=== PATIENT | female | born 1995 | race Caucasian/White ===

== ENCOUNTER 2025-03-25 15:22 | Emergency (ER) | payer BC, SELFPAY ==
[2025-03-25 15:23] VITALS: BMI 26.7
[2025-03-25 16:21] VITALS: BP 138/95; PULSE 100; RESP 18; TEMP 36.9; O2SAT 99
--- NOTE | 2025-03-25 16:30 | XR_ITS ---
Examination: Complete OB ultrasound, less than 14 weeks, transabdominal Date and time of exam: March 25, 2025, 1646 hours INDICATIONS: Heavy vaginal bleeding beginning 8 days ago Technique: Obstetrical ultrasound images less than 14 weeks performed via transabdominal imaging Findings: Uterus 8.0 cm, no intrauterine gestation no uterine mass Endometrial stripe 21 mm Right ovary 2.7 cm arterial flow Left ovary 2.7 cm arterial flow 15 x 18 mm follicular cyst IMPRESSION: No intrauterine gestation, thickened endometrial stripe, clinical correlation advised
--- NOTE | 2025-03-25 16:31 | PD.EDVAGBL ---
ED OB Contraction Preg RMI/HPI General Chief complaint: Vaginal Bleeding Stated complaint: VAG BLEED Time Seen by Provider: 03/25/25 15:36 Arrival date/time: 03/25/25 15:22 29-year-old female G2, unknown gestation is sent in by [facility] for vaginal bleeding early . Patient states that she has been bleeding for the past 24 hours and has changed several pads within the last hour she also notes some mild pelvic pain but no fever no dysuria urinary urgency or frequency no back pain no nausea or vomiting. Patient states that she was unaware of her and therefore has not taken any vitamins Limitations: no limitations Related Data Previous Rx's ?Medication ?Instructions ?Recorded famotidine 20 mg tablet 20 mg PO BID #10 tabs 06/15/17 Allergies Allergy/AdvReac Type Severity Reaction Status Date / Time No Known Allergies Allergy Verified 07/24/22 22:45 Review of Systems Constitutional Constitutional: Denies chills, Denies fever(s) and Denies headache(s) ENT Ears, Nose, Mouth, and Throat: Denies headache(s) and Denies vertigo Gastrointestinal Gastrointestinal: Denies nausea and Denies vomiting Genitourinary Genitourinary: Reports abnormal vaginal bleeding, Denies dysuria, Denies urinary hesitancy and Denies urinary urgency Musculoskeletal Musculoskeletal: Denies back pain and Denies myalgias Integumentary/Breasts Skin/Breast: Denies lesions, Denies rash and Denies sores Neurologic Neurologic: Denies headache(s) and Denies vertigo Hematologic/Lymphatic Hematologic/Lymphatic: Denies easy bleeding and Denies easy bruising Past Medical History Past Medical History CARDIAC: Positive Hypertension; Negative Cardiac Disorders or Congestive Heart Failure RESPIRATORY: Negative Chronic Obstructive Pulmonary Disease (COPD) or Asthma GASTROINTESTINAL: Positive Gastroesophageal Reflux Disease GENITOURINARY: Negative Renal Disease ENDOCRINE: Negative Diabetes Mellitus Type 1 or Diabetes Mellitus Type 2 HEMATOLOGIC: Negative Sickle Cell Disease Social History SMOKING STATUS: Never smoker ED Exam General Limitations: Present no limitations General appearance: Present alert and in no apparent distress Chest Chest inspection: Present normal inspection and symmetric chest wall rise Respiratory Respiratory exam: Present normal lung sounds bilaterally Cardiovascular Cardiovascular exam: Present regular rate, normal rhythm and normal heart sounds Abdominal Exam Abdominal exam: Present soft and normal bowel sounds External exam: Present normal external exam and erythema Speculum exam: Present normal speculum exam and vaginal bleeding Bimanual exam: Present normal bimanual exam; Absent cervical motion tenderness, adnexal tenderness or adnexal mass Back Exam Back exam: Present normal inspection and full ROM Neurological Exam Neurological exam: Present alert, oriented X3 and CN II-XII intact Psychiatric Psychiatric exam: Present normal affect and normal mood Skin Skin exam: Present warm, dry, intact and normal color Course Quality Measures none Orders Category Date Time Status Pelvic Exam X1 Care 03/25/25 16:30 Active US OB <= 14 weeks fetus Stat Exams 03/25/25 16:30 Completed Beta HCG,Quantitative Stat Lab 03/25/25 17:44 Completed Chlamydia/GC/TV - PCR Stat Lab 03/25/25 17:30 Completed UA, C/S IF [Urinalysis, C/S if Indicated] Stat Lab 03/25/25 17:30 Completed Vital Signs Vital signs: Vital Signs Temperature 98.5 F 03/25/25 16:21 Pulse Rate 100 03/25/25 16:21 Respiratory Rate 18 03/25/25 16:21 Blood Pressure 138/95 H 03/25/25 16:21 Pulse Oximetry (%) 99 03/25/25 16:21 Oxygen Delivery Method Room Air 03/25/25 16:21 Vaginal Bleeding Patient data External records reviewed:: None Clinical information provided by:: patient Social determinants that could affect healthcare access:: none Patient has the following chronic illnesses:: none How is presenting disease/condition affected by chronic disease/condition?: no chronic disease Evaluation data The following diagnostics were reviewed and interpreted by me:: lab results and radiology exam(s) Lab and/or radiology exams considered but not ordered:: none Interpretation Summary: No intrauterine noted however beta-hCG 1600 Medications / Prescriptions Medications or Prescriptions considered but not ordered:: None Medication administrations:: None Consultations Consultation(s) initiated? (list below): No Diagnosis Vaginal Bleeding Differential Diagnosis: missed , threatened , incomplete and vaginal bleeding Most likely diagnosis given after review of the tests above:: Bleeding during Admission Indicated Admission indicated?: not indicated Admission Request Was there a request for admission?: No Disposition Plan Disposition Plan: Discharge Discharge Attestation Discharge Attestation: The patient and all family members were given an opportunity to ask questions and understood the discharge instructions. Discharge instructions specifically effects, indications for sooner follow up or return to the emergency department, and the expected course of current diagnosis. Patient condition: Stable Discharge Plan Plan Patient Disposition: HOME (Self Care) Prescriptions/Referrals Prescriptions/Med Rec: No Action famotidine 20 mg tablet 20 mg PO BID Qty: 10 0RF Referrals: Amparo Hoyos NP [Primary Care Provider] - In 1 week Problem List Clinical Impression: Vaginal bleeding during Patient/Caregiver Discharge Instructions Discharge Activity: activity as tolerated Education Materials: Bleeding During Early Additional Instructions: Follow-up with your [facility] or return to the emergency department in 48 hours for repeat blood work Print Language: Tunisian Stand Alone Forms: Brittani Award Info., Patient Portal Info Letter
[2025-03-25 17:43] LABS: Collection Type, Urine Clean Catch
[2025-03-25 18:02] LABS: Amorphous Crystals,Urine Present (Absent); Bilirubin,Urine Negative (Negative); Blood,Urine 3+ (Negative); Clarity,Urine Turbid (Clear/Hazy); Color,Urine Yellow (Lt Yel-Yel); Culture Indicated,Urine Not Indicated; Glucose, Urine Negative (Negative); Ketones,Urine 2+ (Negative); Leukocyte Esterase,Urine Negative (Negative); Nitrite,Urine Negative (Negative); PH,Urine 6.0 (5.0-7.0); Protein,Urine 1+ (Neg - Trace); RBC,Urine 2177 /hpf (0-3); Specific Gravity,Urine 1.035 (1.001-1.035); Squamous Epithelial Cell,Urine 2 /hpf (0-5); Urobilinogen,Urine Negative mg/dL (0.0-1.0); WBC,Urine 2 /hpf (0-5)
[2025-03-25 19:19] LABS: Beta HCG,Quantitative 1628 mIU/mL (<5.0)
[2025-03-25 19:51] LABS: Chlamydia trachomatis PCR Negative (Not Detect); Neisseria Gonorrhoeae DNA PCR Negative (Not Detect); Trichomonas Negative (Negative)
== END 2025-03-25 21:11 | disposition home or self-care (01) ==
PROVIDERS: Physician Assistant; Emergency Provider Family Medicine; PCP Nurse Practitioner Family
DX: O20.9 Hemorrhage in early pregnancy, unspecified (principal); Z3A.00 Weeks of gestation of pregnancy not specified
CPT/HCPCS: 36415; 76801; 81001; 81514; 84702; 87491; 87591; 87661; 99283